=== PATIENT | female | born 2005 | race Caucasian/White ===

== ENCOUNTER 2023-06-14 12:43 | Emergency (ER) | payer MEDICAID ==
[~2023-06-14] VITALS: Ht 157.5 cm; Wt 56.2 kg
[2023-06-14 13:27] VITALS: BP 107/67; PULSE 60; RESP 18; TEMP 98.3; O2SAT 98
[2023-06-14] MEDS ORDERED: ACET-10509 PO (13:57)
[2023-06-14] MEDS ORDERED: AMOX-1230 PO (13:57)
[2023-06-14] MEDS: ACETAMINOPHEN EXTRA STRENGTH 500 MG TAB PO ONE (14:10)
== END 2023-06-14 14:29 | disposition home or self-care (01) ==
LOC: MED 12:43
DX: S60.511A Abrasion of right hand, initial encounter (principal); Z79.899 Other long term (current) drug therapy; W54.0XXA Bitten by dog, initial encounter; Y93.89 Activity, other specified; Y92.89 Other specified places as the place of occurrence of the external cause; Y99.8 Other external cause status
CPT/HCPCS: 99283